=== PATIENT | female | born 1990 | race African-American/Black ===

== ENCOUNTER 2021-05-23 14:29 | Emergency (ER) | payer MEDICAID ==
[~2021-05-23] VITALS: Ht 167.6 cm; Wt 54.5 kg
[2021-05-23 16:09] VITALS: BP 105/70
[2021-05-23 16:28] LABS: BILIRUBIN,URINE NEGATIVE (NEG); CLARITY,URINE CLOUDY; COLOR,URINE YELLOW; NITRITE,URINE NEGATIVE (NEG); PH,URINE 8.5 (<5.0-8.0); PROTEIN,URINE 30 mg/dL (NEG-TRACE); UROBILINOGEN,URINE 0.2 mg/dL (0.2 mg/dL)
[2021-05-23] MEDS ORDERED: IV NORMAL SALINE 1000ML BAG 1,000 ML IV ONE (16:30)
[2021-05-23] MEDS ORDERED: KETOROLAC 15 MG/ML VIAL. IVP ONE (16:30)
[2021-05-23] MEDS ORDERED: ONDANSETRON PF 4 MG/2 ML VIAL. IVP ONE (16:30)
[2021-05-23 16:42] LABS: BACTERIA,URINE FEW /HPF (0-FEW); RBC,URINE >40 /HPF (0-2)
[2021-05-23] MEDS ORDERED: CEPH500C PO (16:50)
--- NOTE | 2021-05-23 16:51 | PHYS DOC ---
General Adult EDM: Chief Complaint: ABDOMINAL PAIN HPI: HPI: Patient is a 30 year old female who presents with low mid abdominal pain that she states radiates across and then burning with urination for the last 4 days. She states she got nauseated and vomited and had a hot flash if like she is in a pass out earlier today. She rates her pain about a 5 out of 10. Denies concern for sexual she has been disease, vaginal discharge, fever, back pain, headache, dizziness, chest pain, shortness of air. She is currently on her menstrual cycle. (SUKUMAR QUISPE APRN) Review of Systems: Review of Systems: Constitutional: Denies fever or chills. [] Eyes: Denies change in visual acuity. [] HENT: Denies nasal congestion or sore throat. [] Respiratory: Denies cough or shortness of breath. [] Cardiovascular: Denies chest pain or edema. [] GI: + Lower abdominal pain, +nausea, +vomiting, denies bloody stools or diarrhea. [] : Denies dysuria. [] Musculoskeletal: Denies back pain or joint pain. [] Integument: Denies rash. [] Neurologic: Denies headache, focal weakness or sensory changes. + Dizziness [] Endocrine: Denies polyuria or polydipsia. [] Lymphatic: Denies swollen glands. [] Psychiatric: Denies depression or anxiety. [] (SUKUMAR QUISPE APRN) Heart Score: C/O Chest Pain: No (SUKUMAR QUISPE APRN) Current Medications: Current Medications Medications (Trade) Dose Ordered Sig/[facility] Start Time Stop Time Status Last Admin Dose Admin Ketorolac Tromethamine (Toradol 15mg Vial) 15 mg 1X ONCE 05/23/21 16:30 05/23/21 16:34 DC 05/23/21 16:33 15 MG Ondansetron HCl (Zofran) 4 mg 1X ONCE 05/23/21 16:30 05/23/21 16:34 DC 05/23/21 16:33 4 MG Sodium Chloride 1,000 ml @ 1,000 mls/hr 1X ONCE 05/23/21 16:30 05/23/21 17:29 05/23/21 16:33 1,000 MLS/HR (SUKUMAR UQISPE APRN) Allergies: Allergies: Allergies Coded Allergies Type Severity Reaction Last Updated Verified No Known Drug Allergies 05/23/21 No (SUKUMAR QUISPE APRN) Physical Exam: PE: Constitutional: Well developed, well nourished, no acute distress, non-toxic appearance. [] HENT: Normocephalic, atraumatic, bilateral external ears normal, oropharynx moist, no oral exudates, nose normal. [] Eyes: PERRLA, EOMI, conjunctiva normal, no discharge. [] Neck: Normal range of motion, no tenderness, supple, no stridor. [] Cardiovascular:Heart rate regular rhythm, no murmur [] Lungs & Thorax: Bilateral breath sounds clear to auscultation [] Abdomen: Bowel sounds normal, soft, low mid tenderness, no masses, no pulsatile masses. [] Skin: Warm, dry, no erythema, no rash. [] Back: No tenderness, no CVA tenderness. [] Extremities: No tenderness, no cyanosis, no clubbing, ROM intact, no edema. [] Neurologic: Alert and oriented X 3, normal motor function, normal sensory function, no focal deficits noted. [] Psychologic: Affect normal, judgement normal, mood normal. [] (SUKUMAR QUISPE APRN) Current Patient Data: Labs: Laboratory Tests Test 05/23/21 16:08 POC Urine HCG, Qualitative Hcg negative (Negative) (SUKUMAR QUISPE APRN) EKG: EKG: [] (SUKUMAR QUISPE APRN) Radiology/Procedures: Radiology/Procedures: [] (SUKUMAR QUISPE APRN) Course & Med Decision Making: Course & Med Decision Making Pertinent Labs and Imaging studies reviewed. (See chart for details) See HPI. Alert and oriented x4. Ambulatory steady gait. Speaks in full clear sentences. Afebrile. Skin pink warm and dry. No nystagmus. Vital signs are within normal limits. Abdomen is soft but tender to the low mid moderate. [] (SUKUMAR QUISPE APRN) Course & Med Decision Making I have participated in the care of this patient and I have reviewed and agree with all pertinent clinical information above including history, exam, and recommendations. Mary Jo Ornelas DO (MARY JO ORNELAS DO) [place] Disclaimer: Morgan Disclaimer: This electronic medical record was generated, in whole or in part, using a voice recognition dictation system. (SUKUMAR QUISPE APRN) Departure Departure Impression: Primary Impression: Urinary tract infection Qualified Codes: N30.00 - Acute cystitis without hematuria Disposition: HOME / SELF CARE / HOMELESS Condition: STABLE Patient Instructions: Urinary Tract Infection Additional Instructions: Follow-up with primary care provider. Drink plenty of fluids. Take Tylenol or ibuprofen for your pain. If you start running a fever or vomiting he cannot keep down fluids return to the emergency room. Scripts Cephalexin (KEFLEX) 500 Mg Capsule 1 CAP PO TID, #30 CAP Prov: SUKUMAR QUISPE APRN 05/23/21 SUKUMAR QUISPE APRN May 23, 2021 16:51 MARY JO ORNELAS DO May 24, 2021 06:10
[2021-05-23] MEDS ORDERED: cefTRIAXone IV Push 1 GM VIAL. IVP ONE (17:00)
== END 2021-05-23 18:30 | disposition home or self-care (01) ==
LOC: ER 14:29
DX: N30.00 Acute cystitis without hematuria (principal)
CPT/HCPCS: 81001; 81025; 87086; 96361; 96374; 96375; 99284; J0696; J1885; J2405; J7030